=== PATIENT | male | born 1945 | race Caucasian/White ===

== ENCOUNTER 2016-11-23 10:10 | Day surgery (SDC) | payer MEDICARE, BC ==
--- NOTE | ~2016-11-23 | EGD ---
EGD REPORT [facility] [address] [place] [address] NAME: DON CRONIN : [birth year] STATUS : REG [facility] PAT#: [id number] AGE: 71 ADM/REG DATE : 11/23/16 MR#: [id number] REPORT SERV DATE: 11/23/16 DICTATED BY: PATRICIO FINNEY DATE: 11/23/16 REPORT STATUS : Draft TRANSCRIBED BY: [facility] DATE: 11/23/16 Endoscopy Center Patient Name: Don Cronin Date of : 1945 Attending MD: PATRICIO FINNEY MD Procedure Date No Time: 11/23/2016 Procedure: Upper GI endoscopy Indications: Epigastric abdominal pain, Iron deficiency anemia, Melena Referring MD: MIKE LUNDBERG Medicines: See the Anesthesia note for documentation of the administered medications Complications: No immediate complications. Procedure: Pre-Anesthesia Assessment: - ASA Grade Assessment: IV - A patient with severe systemic disease that is a constant threat to life. After obtaining informed consent, the endoscope was passed under direct vision. Throughout the procedure, the patient's blood pressure, pulse, and oxygen saturations were monitored continuously. The GIF [id number] was introduced through the mouth, and advanced to the second part of duodenum. The upper GI endoscopy was accomplished without difficulty. The patient tolerated the procedure well. Findings: The 2nd part of the duodenum was normal. Biopsies were taken with a cold forceps for histology. A single 8 mm sessile polyp was found at the pylorus. Biopsies were taken with a cold forceps for histology. The cardia and gastric fundus were normal on retroflexion. The examined esophagus was normal. Impression: - Normal 2nd part of the duodenum. Biopsied. - A single gastric polyp. Biopsied. - Normal esophagus. Recommendation: - Patient has a contact number available for emergencies. The signs and symptoms of potential delayed complications were discussed with the patient. Return to normal activities tomorrow. Written discharge instructions were provided to the patient. - Regular diet. - Continue present medications. - FOR YOUR BIOPSY RESULTS: Please go to [email or web address] and register to receive your EGD REPORT [address] [address] NAME: DON CRONIN : [birth year] STATUS : REG [facility] PAT#: [id number] AGE: 71 ADM/REG DATE : 11/23/16 MR#: [id number] REPORT SERV DATE: 11/23/16 DICTATED BY: PATRICIO FINNEY DATE: 11/23/16 REPORT STATUS : Draft TRANSCRIBED BY: [employer] DATE: 11/23/16 results via the portal. Your biopsy results will be posted there in about 7 to 10 days. IF you do not see result in 10 days, call office. Procedure Code(s): --- Professional --- 26617, Esophagogastroduodenoscopy, flexible, transoral; with biopsy, single or multiple Diagnosis Code(s): --- Professional --- K31.7, Polyp of stomach and duodenum R10.13, Epigastric pain D50.9, Iron deficiency anemia, unspecified K92.1, Melena CPT copyright 2013 [employer]. All rights reserved. The codes documented in this report are preliminary and upon building coordinator review may be revised to meet current compliance requirements. Patricio Finney MD PATRICIO FINNEY MD 11/23/2016 12:16 PM This report has been signed electronically. Number of Addenda: 0 Note Initiated On: 11/23/2016 12:05 PM Scope Withdrawal Time 0 hours 0 minutes 0 seconds [id number] [id number]
--- NOTE | ~2016-11-23 | EGD ---
EGD REPORT [facility] [address] [place] [address] NAME: DON CRONIN : [birth year] STATUS : REG [facility] PAT#: [id number] AGE: 71 ADM/REG DATE : 11/23/16 MR#: [id number] REPORT SERV DATE: 11/23/16 DICTATED BY: PATRICIO FINNEY DATE: 11/23/16 REPORT STATUS : Draft [facility]: [facility] DATE: 11/23/16 Endoscopy Center Patient Name: oDn Cronin Date of : 1945 Attending MD: PATRICIO FINNEY MD Procedure Date No Time: 11/23/2016 Procedure: Colonoscopy Indications: Iron deficiency anemia, Last colonoscopy: 2012 Referring MD: MIKE LUNDBERG Medicines: See the Anesthesia note for documentation of the administered medications Complications: No immediate complications. Procedure: Pre-Anesthesia Assessment: - ASA Grade Assessment: IV - A patient with severe systemic disease that is a constant threat to life. After I obtained informed consent, the scope was passed under direct vision. Throughout the procedure, the patient's blood pressure, pulse, and oxygen saturations were monitored continuously. The CF [id number] was introduced through the anus and advanced to the terminal ileum, with identification of the appendiceal orifice and IC valve. The colonoscopy was performed without difficulty. The patient tolerated the procedure well. The quality of the bowel preparation was adequate. Findings: The perianal and digital rectal examinations were normal. Diverticula were found in the sigmoid colon. Internal hemorrhoids were found during retroflexion and were small. A sessile polyp was found in the transverse colon. The polyp was 10 mm in size. The polyp was removed with a hot snare. Resection and retrieval were complete. A sessile polyp was found in the transverse colon. The polyp was small in size. The polyp was removed with a cold biopsy forceps. Resection and retrieval were complete. Four sessile polyps were found in the rectum. The polyps were small in size. These polyps were removed with a cold biopsy forceps. Resection and retrieval were complete. Impression: - Diverticulosis in the sigmoid colon. - Internal hemorrhoids. - One 10 mm polyp in the transverse colon. Resected and retrieved. - One small polyp in the transverse colon. Resected and retrieved. EGD REPORT [address] [address] NAME: DON CRONIN : [birth year] STATUS : REG [facility] PAT#: [id number] AGE: 71 ADM/REG DATE : 11/23/16 MR#: [id number] REPORT SERV DATE: 11/23/16 DICTATED BY: PATRICIO FINNEY DATE: 11/23/16 REPORT STATUS : Draft TRANSCRIBED BY: [employer] DATE: 11/23/16 - Four small polyps in the rectum. Resected and retrieved. Recommendation: - Patient has a contact number available for emergencies. The signs and symptoms of potential delayed complications were discussed with the patient. Return to normal activities tomorrow. Written discharge instructions were provided to the patient. - Regular diet. - Continue present medications. - Repeat colonoscopy for surveillance based on pathology results. - FOR YOUR BIOPSY RESULTS: Please go to [email or web address] and register to receive your results via the portal. Your biopsy results will be posted there in about 7 to 10 days. IF you do not see result in 10 days, call office. - If bx negative, then consider small bowel capsule Procedure Code(s): --- Professional --- 16265, Colonoscopy, flexible, proximal to splenic flexure; with removal of tumor(s), polyp(s), or other lesion(s) by snare technique 34258, 59, Colonoscopy, flexible, proximal to splenic flexure; with biopsy, single or multiple Diagnosis Code(s): --- Professional --- K64.8, Other hemorrhoids K57.30, Diverticulosis of large intestine without perforation or abscess without bleeding K62.1, Rectal polyp D12.3, Benign neoplasm of transverse colon D50.9, Iron deficiency anemia, unspecified CPT copyright 2013 [employer]. All rights reserved. The codes documented in this report are preliminary and upon dishing machine operator review may be revised to meet current compliance requirements. Patricio Finney MD PATRICIO FINNEY MD 11/23/2016 12:38 PM This report has been signed electronically. Number of Addenda: 0 EGD REPORT [facility] [address] [address] NAME: DON CRONIN : [birth year] STATUS : REG [facility] [place] PAT#: [id number] AGE: 71 ADM/REG DATE : 11/23/16 MR#: [id number] REPORT SERV DATE: 11/23/16 DICTATED BY: PATRICIO FINNEY DATE: 11/23/16 REPORT STATUS : Draft TRANSCRIBED BY: [employer] DATE: 11/23/16 Note Initiated On: 11/23/2016 12:03 PM Scope Withdrawal Time 0 hours 10 minutes 41 seconds [address] [id number]
[~2016-11-23 10:10] MED LIST: ADALAT CC90 MG PO; ASAB PO; ASMANEX INH; B121000P SC; EFFIENT10 PO; FERROUS SULF325 M1 PO; FISH-EPA1000 MG PO; FOLIC PO; GLUCOPHAGE1000 MG PO; L40 PO; LIPITOR80 MG PO; NAMZARIC 28 MG1 EACH PO; NASONEX NAS; PRIN20 PO; PROAIR HFA INH; RANEXA1000 MG PO; TESTOST CYP100 MG/ML IM; TRICOR145 PO; ZOL100 PO; ZYRTEC ALLGY10 MG PO
== END 2016-11-23 23:59 | disposition home health service (06) ==
LOC: DMU 10:10
PROVIDERS: Internal Medicine Gastroenterology
PROC: 0DBP8ZX Excision of Rectum, Via Natural or Artificial Opening Endoscopic, Diagnostic (ICD-10-PCS; 2016-11-23)
PROC: 0DBL8ZZ Excision of Transverse Colon, Via Natural or Artificial Opening Endoscopic (ICD-10-PCS; 2016-11-23)
PROC: 0DB98ZX Excision of Duodenum, Via Natural or Artificial Opening Endoscopic, Diagnostic (ICD-10-PCS; principal; 2016-11-23 12:00)
PROC: 0DB78ZX Excision of Stomach, Pylorus, Via Natural or Artificial Opening Endoscopic, Diagnostic (ICD-10-PCS; 2016-11-23 12:00)
PROC: 0DBL8ZX Excision of Transverse Colon, Via Natural or Artificial Opening Endoscopic, Diagnostic (ICD-10-PCS; 2016-11-23 12:00)
DX: K63.5 Polyp of colon (principal); K62.1 Rectal polyp; K57.30 Diverticulosis of large intestine without perforation or abscess without bleeding; K64.8 Other hemorrhoids; E11.9 Type 2 diabetes mellitus without complications; I10 Essential (primary) hypertension; J44.9 Chronic obstructive pulmonary disease, unspecified; G47.33 Obstructive sleep apnea (adult) (pediatric); Z88.1 Allergy status to other antibiotic agents; Z88.8 Allergy status to other drugs, medicaments and biological substances
CPT/HCPCS: 82962; 88305